=== PATIENT | male | born 1965 | race Caucasian/White ===

== ENCOUNTER 2022-12-11 13:54 | Outpatient (CLI) | payer BC, SELFPAY ==
--- NOTE | ~2022-12-11 | CT_ITS ---
Non-contrast CT scan of the Abdomen and Pelvis Clinical indication: Hematuria Technique: 2.5 mm axial scans were obtained through the abdomen and pelvis without intravenous or or al contrast. Dose reduction technique was used on this scan by utilizing automated exposure control a nd iterative reconstruction technique. The dose-length product (DLP) was 1298.30 mGy-cm. Findings: Images through the lung bases reveal no abnormalities. There is a 1.5 x 1.1 cm stone at the right mid to lower pole. There are probable cortical scarring or volume loss in the right lower renal pole. Left kidney unremarkable. No hydronephrosis. Diffuse fatty infiltration of the liver noted. The spleen, pancreas, gallbladder, and adrenals appear normal. There is no aortic aneurysm. There is no evidence of bowel obstruction. Normal appendix. Images through the pelvis were performed. There is no evidence of ascites or lymphadenopathy. Urinary bladder unremarkable. No pelvic mass seen. Fat-containing right inguinal hernia present. Impression: 1.5 x 1.1 cm right mid to lower pole renal stone with adjacent right renal cortical scarring. Diffuse fatty infiltration of the liver. Small fat-containing right inguinal hernia. Reviewed, dictated and finalized at [facility]. Impression: 1.5 x 1.1 cm right mid to lower pole renal stone with adjacent right renal urmila ical scarring. Diffuse fatty infiltration of the liver. Small fat-containing right inguinal hernia.
== END 2022-12-11 13:55 | disposition home or self-care (01) ==
PROVIDERS: PCP Family Medicine; Visit Provider Family Medicine
DX: R31.9 Hematuria, unspecified (principal); N20.0 Calculus of kidney; K76.0 Fatty (change of) liver, not elsewhere classified; K40.90 Unilateral inguinal hernia, without obstruction or gangrene, not specified as recurrent
CPT/HCPCS: 74176